=== PATIENT | male | born 1980 | race Two or more races ===

== ENCOUNTER 2019-08-12 11:06 | Emergency (ER) | payer SELFPAY ==
[~2019-08-12] VITALS: Ht 167.6 cm; Wt 81.6 kg
--- NOTE | 2019-08-12 11:10 | NUR ---
[id number], "SEIZURE LIKE ACTIVITY" WHILE WALKING W/ FRIENDS. BG [employer]. 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 DENIES SEIZURE HX. PATIENT A/OX2-3, VERBALLY RESPONSIVE. BREATHING EVEN AND UNLABORED, NOS OB NOTED, ATTACHED TO THE SKIN CARVER.
[2019-08-12] MEDS ORDERED: LORAZEPAM 1 MG TABLET ONE (11:26)
[2019-08-12] MEDS: LORAZEPAM 1 MG TABLET PO ONE (11:33)
--- NOTE | 2019-08-12 12:05 | NUR ---
Social service consult requested by MD for homeless discharge. Per MD notes, pt is a 38-year-old male, patient is brought in by paramedics. Patient had "seizure-like activity" which lasted 15 seconds and witnessed by friends. No history of seizure disorder in the past. LINE MOVER met with the pt bedside. LINE MOVER introduced self and purpose of the visit. Pt is alert and oriented x 4. Pt appears disheveled. Pt reports to be homeless for a year. Pt resides in the streets. Pt reports to have had 3 beers and a lot of vodka 3 days ago. Pt denies any drug use. Pt reports, he smokes up to 2 cigarettes per day. Pt denies any psychiatric diagnoses. Pt denies SI/HI and visual/auditory hallucinations. LINE MOVER encouraged pt to attend AA and an alcohol treatment program. LINE MOVER provided pt with active listening and supportive counseling. LINE MOVER provided pt with homeless packet which includes [facility] [id number] Winter Intermediate program list, [facility] located at [address] ; [facility], [address] [place] ; [facility], [address] ; [facility] Homeless Resource Directory which includes food stamps, transitional housing, showers and hot meals etc; Mental Health clinics such as [facility] ; [facility] ; Health clinics;[facility] and Alcohol treatment centers such as [facility], ; [facility] Substance Abuse Hotline and [facility] . LINE MOVER highlighted mushroom picker times and location for winter nursing home. Homeless Patient waiver form was signed by the pt. and placed in pt's chart. TAP card was provided. No other social service needs are requested at this time.
--- NOTE | 2019-08-12 12:19 | NUR ---
Patient refused food but given plenty of water to drink. Patient has adequate clothing, a/ox4, breathing even and unlabored, vitals stable. Seen and consulted by outreach and education social worker Shanika. Patient given written and verbal discharge instructions. Patient verbalizes understanding of instructions. Patient is ambulatory with steady gait. Refuses offer of skilled nursing placement. Patient given list of available shelters in surrounding area. Tap card provided.
[2019-08-12 12:29] VITALS: BP 104/66
== END 2019-08-12 12:31 | disposition home or self-care (01) ==
LOC: ER 11:13
DX: F10.239 Alcohol dependence with withdrawal, unspecified (principal); Y90.9 Presence of alcohol in blood, level not specified